=== PATIENT | female | born 1965 | race African-American/Black ===

== ENCOUNTER 2018-02-12 14:12 | Emergency (ER) | payer OTHER ==
[~2018-02-12] VITALS: Ht 152.4 cm; Wt 74.0 kg
[2018-02-12] MEDS ORDERED: PREDNISONE50 MG PO (16:38)
[2018-02-12 17:09] VITALS: BP 156/92
== END 2018-02-12 17:52 | disposition home or self-care (01) ==
LOC: EME 14:12
DX: J45.901 Unspecified asthma with (acute) exacerbation (principal); I10 Essential (primary) hypertension; F17.200 Nicotine dependence, unspecified, uncomplicated
CPT/HCPCS: 71046; 94640; 99281; 99284; J7512